=== PATIENT | male | born 1960 | race Caucasian/White ===

== ENCOUNTER 2017-01-16 02:19 | Emergency (ER) | payer BC ==
[~2017-01-16] VITALS: Ht 177.8 cm; Wt 83.0 kg
[2017-01-16] MEDS ORDERED: OMEPRAZOLE20 M2 ORAL (02:33)
[2017-01-16] MEDS ORDERED: LISINOPRIL20 MG ORAL (02:33)
[2017-01-16] MEDS ORDERED: ABACAVIR-LAMIV1 EAC1 PO (02:33)
[2017-01-16] MEDS ORDERED: AZITHROMYC200 MG/5 M ORAL (02:33)
[2017-01-16] MEDS ORDERED: AMLODIPINE BESYL5 MG ORAL (02:33)
[2017-01-16] MEDS ORDERED: VALACYCLOVIR500 MG ORAL (02:33)
[2017-01-16 02:35] VITALS: BP 146/98
--- NOTE | 2017-01-16 02:42 | Emergency Room Report ---
History of Present Illness General Chief Complaint: Neck Pain Source: Patient Present Illness HPI Patient presents with complaints of neck pain He states that Sunday is when his pain started to come on Patient reports that he has had a mild cough as well Denies any fevers Denies any chest or shortness of breath denies any upper extremity weakness pain was initially more on the right side of the neck and the upper and mid area However he feels now more in the left side And it does seem to move Denies any trauma Denies any trismus Allergies: Coded Allergies: No Known Allergies (Unverified , 01/16/17) Patient History Past Medical History: see triage record Pertinent Family History: none Reviewed Nursing Documentation: PMH: Agreed, PSxH: Agreed Nursing Documentation-PMH Past Medical History: No History, Except For Review of Systems All Other Systems: negative except mentioned in HPI Physical Exam Vital Signs Date Time Temp Pulse Resp B/P (MAP) Pulse Ox O2 Delivery O2 Flow Rate FiO2 01/16/17 02:21 98.2 98 19 146/98 97 Room Air Sp02 EP Interpretation: reviewed, normal General Appearance: well appearing, no apparent distress Head: normocephalic, atraumatic Eyes: bilateral eye PERRL, bilateral eye EOMI ENT: hearing grossly normal, normal pharynx, TMs + canals normal, uvula midline Neck: supple - Patient is sitting, and essentially has no moving his head from right to left, secondary to causing pain, he appears to be somewhat stiff, no meningismus, no bony tend Respiratory: lungs clear, normal breath sounds, no rhonchi, no respiratory distress, no retraction, no accessory muscle use Cardiovascular #1: normal peripheral pulses, regular rate, rhythm, no edema, no gallop, no JVD, no murmur Gastrointestinal: normal bowel sounds, non tender, soft, no mass, no organomegaly, non-distended, no guarding, no hernia, no pulsatile mass, no rebound Musculoskeletal: normal inspection Neurologic: oriented x3, responsive, geographic analyst III-XII nml as tested, motor strength/ tone normal, sensory intact Psychiatric: mood/affect normal Skin: normal color, no rash, warm/dry, palpation normal Lymphatic: normal inspection, no adenopathy Medical Decision Making Diagnostic Impression: Primary Impression: Neck strain Additional Impression: Neck muscle strain ER Course Multiple differentials are considered Including but not limited to neurological, neurosurgical, infectious pathology such as meningitis Patient has not had any obvious trauma He has had a mild cough potentially exacerbating muscle strain I do not feel that emergency imaging would provide much input Patient is treated symptomatically Unfortunately he did drive therefore was not able to be given Valium And requires close outpatient followup Last Vital Signs Date Time Temp Pulse Resp B/P (MAP) Pulse Ox O2 Delivery O2 Flow Rate FiO2 01/16/17 02:21 98.2 98 19 146/98 97 Room Air Status: improved Disposition: HOME, SELF-CARE Condition: Improved Scripts Ibuprofen* (MOTRIN*) 600 Mg Tablet 600 MG ORAL THREE TIMES A DAY, #30 TAB 0 Refills Prov: RICKI FAITH D.O. 01/16/17 Methocarbamol* (ROBAXIN-750*) 750 Mg Tablet 750 MG PO TID, #21 TAB 0 Refills Prov: RICKI FAITH D.O. 01/16/17 Additional Instructions: Patient is provided with the discharge instructions notified to follow up with primary doctor in the next 2-3 days otherwise return to the er with any worsening symptoms. Please note that this report is being documented using [employer] technology. This can lead to erroneous entry secondary to incorrect interpretation by the dictating instrument. RICKI FAITH D.O. Jan 16, 2017 02:42
[2017-01-16] MEDS ORDERED: Ketorolac 60mg Inj IM ONE (02:45)
[2017-01-16] MEDS ORDERED: Methocarbamol 750mg tab ORAL ONE (02:45)
[2017-01-16] MEDS ORDERED: IBUPROFEN600 MG ORAL (03:15)
[2017-01-16] MEDS ORDERED: ROBAXIN-750750 MG PO (03:15)
[2017-01-16 03:21] VITALS: BP 146/98
--- NOTE | 2017-01-16 11:56 | Diagnostic Imaging Report ---
Indication: Cough Comparison: 06/18/2008 A single view chest radiograph was obtained. Findings: Lung volumes are low bilaterally. Heart size is increased. Bones are unremarkable. Impression: No acute disease
== END 2017-01-16 03:22 | disposition home or self-care (01) ==
LOC: EMR 02:35
DX: S16.1XXA Strain of muscle, fascia and tendon at neck level, initial encounter (principal); X58.XXXA Exposure to other specified factors, initial encounter; Y92.89 Other specified places as the place of occurrence of the external cause
CPT/HCPCS: 71010; 96372; 99283